=== PATIENT | female | born 1990 | race Two or more races ===

== ENCOUNTER 2020-04-21 11:48 | Emergency (ER) | payer MEDICAID, OTHER ==
[~2020-04-21] VITALS: Ht 154.9 cm; Wt 95.3 kg
[2020-04-21 16:29] VITALS: BP 110/63
[2020-04-21 20:35] LABS: Urine Bacteria NONE SEEN /hpf (None Seen); Urine Blood 3+ /uL (Negative); Urine Mucus FEW (None Seen); Urine Specific Gravity 1.027 (1.001-1.035); Urine WBC 54 /hpf (0 - 5)
== END 2020-04-21 17:47 | disposition home or self-care (01) ==
LOC: ER 11:48
DX: O20.0 Threatened abortion (principal); O23.41 Unspecified infection of urinary tract in pregnancy, first trimester; Z3A.09 9 weeks gestation of pregnancy
CPT/HCPCS: 36415; 76801; 81001; 81025; 84702